=== PATIENT | female | born 1950 | race Caucasian/White ===

== ENCOUNTER → 2020-03-19 11:14 | Outpatient (CLI) | payer MEDICARE, SELFPAY ==
--- NOTE | ~2020-03-19 | XR_ITS ---
XR knee LT 2V 03/19/2020 11:51 INDICATION: Left knee pain PROCEDURE: 2 views left knee COMPARISON: No prior studies for comparison. FINDINGS: Fracture, dislocation or subluxation is not identified. 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 The soft tissues appear within normal limits. No foreign bodies are identified. IMPRESSION: 1: NO ACUTE BONE OR JOINT ABNORMALITY IDENTIFIED. Reviewed, dictated and finalized at location A.
== END ==
PROVIDERS: PCP Nurse Practitioner Family; Visit Provider Nurse Practitioner Family
DX: M25.569 Pain in unspecified knee (principal)
CPT/HCPCS: 73560

== ENCOUNTER → 2020-05-15 10:19 | Outpatient (CLI) | payer MEDICARE, SELFPAY ==
--- NOTE | ~2020-05-15 | MM_ITS ---
EXAMINATION: MM screening [facility] BI w lakisha HISTORY: Screening mammogram TECHNIQUE: Craniocaudal and mediolateral oblique 3-D tomosynthesis images were obtained and synthetic 2-D images were generated. CAD analysis was submitted and interpreted. COMPARISON: 04/12/2017, 03/16/2016, 11/21/2014 BREAST PARENCHYMAL COMPOSITION: There are scattered areas of fibroglandular density. FINDINGS: There is no evidence of suspicious mass, calcification, or architectural distortion to sugg est malignancy in either breast. There has been no suspicious interval change. IMPRESSION: 1. No mammographic evidence of malignancy. 2. Recommend routine screening mammography in one year. BI-RADS Category 1: Negative Reviewed, dictated and finalized at location A. 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
--- NOTE | ~2020-05-15 | DEXA_ITS ---
Bone Density Report Name: Miriam Porras Age: 70 Sex: Female Ethnicity: White Date of : 1950 Indication: osteopenia; height loss;postmenopausal Referring Provider: BEATRIZ BEAUCHAMP Study: Bone densitometry was performed. Exam Date: May 15, 2020 Accession number: [id number] Bone Density: Region BMD T-score Z-score Classification AP Spine (L1, L2, L3) 0.753 -2.4 -0.3 Osteopenia Femoral Neck (Left) 0.581 -2.4 -0.6 Osteopenia Total Hip (Left) 0.598 -2.8 -1.3 Osteoporosis Femoral Neck (Right) 0.638 -1.9 -0.1 Osteopenia Total Hip (Right) 0.629 -2.6 -1.1 Osteoporosis Total Hip Mean 0.614 -2.7 -1.2 Osteoporosis World Health Organization criteria for BMD impression classify patients as: Normal (T-score at or above -1.0), Osteopenia (T-score between -1.0 and -2.5), or Osteoporosis (T-score at or below -2.5). 10-year Fracture Risk: FRAX not reported because: Some T-score for Spine Total or Hip Total or Femoral Neck at or below -2.5 Previous Exams: Region Exam Age BMD T-score BMD Change BMD Change Date g/cm2 vs Baseline vs Previous AP Spine(L1, L2, L3) 05/15/2020 70 0.753 -2.4 -0.050* -0.050* 09/14/2013 63 0.804 -1.9 Total Hip(Left) 05/15/2020 70 0.598 -2.8 -0.078* -0.078* 09/14/2013 63 0.676 -2.2 Total Hip(Right) 05/15/2020 70 0.629 -2.6 -0.072* -0.072* 09/14/2013 63 0.701 -2.0 *Denotes significance at 95% confidence level, LSC for AP Spine = 0.022 g/cm2, LSC for Total Hip = 0.027 g/cm2 Clinical Information Provided by Patient: Has used the following medications: Vitamin D, Calcium Patient maximum height was 64.7 Menopause Age: 44 No regular weight bearing exercise Does not regularly consume dairy products Onset of menses at age 15 Number of children 2 Impression: The patient has osteoporosis, based on the Left Total Hip T-score. The BMD for the AP Spine(L1, L2, L3) decreased, changing by -0.050 since the last DXA exam. The BMD for the Total Hip(Left) decreased, changing by -0.078 since the last DXA exam. The BMD for the Total Hip(Right) decreased, changing by -0.072 since the last DXA exam. Discussion: INCREASED RISK OF FRACTURE. BONE DENSITY IS UNDESIRABLY LOW AT ONE OR MORE SKELETAL SITES, CONSISTENT WITH POSTMENOPAUSAL OSTEOPOROSIS. This patient's lowest T-score meets the World Health Organization's (WHO) criteria for osteoporosis at one or more sites (T-score -2.5 or below).
== END ==
PROVIDERS: PCP Family Medicine; Visit Provider Nurse Practitioner Family
DX: Z12.31 Encounter for screening mammogram for malignant neoplasm of breast (principal); Z78.0 Asymptomatic menopausal state; M81.0 Age-related osteoporosis without current pathological fracture; M85.89 Other specified disorders of bone density and structure, multiple sites
CPT/HCPCS: 77063; 77067; 77080

== ENCOUNTER → 2020-07-23 13:29 | Outpatient (CLI) | payer MEDICARE, SELFPAY ==
--- NOTE | ~2020-07-23 | MR_ITS ---
EXAMINATION: MR brain IAC wo/w con DATE: 07/23/2020 14:51 INDICATION: Asymmetrical hearing loss of left ear. Dizziness. TECHNIQUE: Magnetic resonance imaging (MRI) of the brain, brainstem, and internal auditory canals was performed without and with 13 mL MultiHance intravenous contrast. Sequences included sagittal and ax ial T1-weighted FSE, axial diffusion-weighted FS EPI, axial T2*-weighted GRE, axial T2-weighted FLAIR Propeller, axial T2-weighted Propeller, small abmdj-jg-mrta coronal FIESTA, small abinq-wl-ehvm clinton nal T1-weighted FSE, and small xyrcq-hw-kxym axial T1-weighted SPGR. Postcontrast sequences included axial T1-weighted FSE, small ubxia-cv-jkpk coronal T1-weighted FSE, and small iswpr-cd-mwkj axial T1- weighted SPGR. Apparent diffusion coefficient (ADC) maps were created. COMPARISON: Brain MRI 03/29/2012 FINDINGS: There are scattered areas of nonspecific increased T2-weighted signal intensity in the cere bral white matter, which is within normal limits for the patient's age. There is no intracranial hemo rrhage, acute infarction, or abnormal intracranial mass lesion. The ventricles are normal in size. Th e orbits are normal. The paranasal sinuses are clear. The internal auditory canals and inner and midd le ears are normal. The mastoid air cells are normal. IMPRESSION: 1. Normal aging brain. Reviewed, dictated and finalized at location A. 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 Normal aging brain.
[2020-07-23 14:12] LABS: Estimated Glomerular Filt Rate 55
== END ==
PROVIDERS: PCP Family Medicine
DX: H91.8X2 Other specified hearing loss, left ear (principal); R42 Dizziness and giddiness
CPT/HCPCS: 70553; A9577

== ENCOUNTER → 2021-09-02 14:55 | Outpatient (CLI) | payer MEDICARE, SELFPAY ==
--- NOTE | ~2021-09-02 | MM_ITS ---
EXAMINATION: MM screening [facility] BI w lakisha HISTORY: Screening TECHNIQUE: Craniocaudal and mediolateral oblique 3-D tomosynthesis images were obtained and synthetic 2-D images were generated. CAD analysis was submitted and interpreted. COMPARISON: Comparison to multiple prior studies sequentially, with oldest reviewed study dated 09/2011. BREAST PARENCHYMAL COMPOSITION: There are scattered areas of fibroglandular density. FINDINGS: There is no evidence of suspicious mass, calcification, or architectural distortion to sugg est malignancy in either breast. There has been no suspicious interval change. IMPRESSION: 1. No mammographic evidence of malignancy. 2. Recommend routine screening mammography in one year. BI-RADS Category 1: Negative Reviewed, dictated and finalized at location A. ETING MGR
== END ==
PROVIDERS: PCP Family Medicine; Visit Provider Family Medicine
DX: Z12.31 Encounter for screening mammogram for malignant neoplasm of breast (principal)
CPT/HCPCS: 77063; 77067

== ENCOUNTER → 2022-11-12 13:21 | Outpatient (CLI) | payer MEDICARE, SELFPAY ==
--- NOTE | ~2022-11-12 | MM_ITS ---
EXAMINATION: MM screening [facility] BI w lakisha HISTORY: Screening mammogram TECHNIQUE: Craniocaudal and mediolateral oblique 3-D tomosynthesis images were obtained and synthetic 2-D images were generated. CAD analysis was submitted and interpreted. COMPARISON: 09/02/2021, 05/15/2020, 04/12/2017 BREAST PARENCHYMAL COMPOSITION: There are scattered areas of fibroglandular density. FINDINGS: No suspicious mass, calcification, or architectural distortion are identified in either alexandr ast to suggest malignancy. There has been no suspicious interval change. IMPRESSION: 1. No mammographic evidence of malignancy. 2. Recommend routine screening mammography in one year. BI-RADS Category 1: Negative Reviewed, dictated and finalized at location A.
--- NOTE | ~2022-11-12 | DEXA_ITS ---
Bone Density Report Name: JULIET BURTON Age: 72 Sex: Female Ethnicity: White Date of : 1950 Indication: postmenopausal osteoporosis; height loss; Referring Provider: Maria Antonia Olmstead Study: Bone densitometry was performed. Exam Date: November 12, 2022 Accession number: [id number] Bone Density: Region BMD T-score Z-score Classification AP Spine (L1, L2) 0.710 -2.4 -0.3 Osteopenia Femoral Neck (Left) 0.615 -2.1 -0.2 Osteopenia Total Hip (Left) 0.624 -2.6 -1.0 Osteoporosis Femoral Neck (Right) 0.670 -1.6 0.3 Osteopenia Total Hip (Right) 0.658 -2.3 -0.7 Osteopenia Total Hip Mean 0.641 -2.5 -0.9 Osteopenia World Health Organization criteria for BMD impression classify patients as: Normal (T-score at or above -1.0), Osteopenia (T-score between -1.0 and -2.5), or Osteoporosis (T-score at or below -2.5). 10-year Fracture Risk: FRAX not reported because: Some T-score for Spine Total or Hip Total or Femoral Neck at or below -2.5 Previous Exams: Region Exam Age BMD T-score BMD Change BMD Change Date g/cm2 vs Baseline vs Previous AP Spine(L1, L2) 11/12/2022 72 0.710 -2.4 0.009 0.037* 05/15/2020 70 0.673 -2.8 -0.029* -0.029* 09/14/2013 63 0.702 -2.5 Total Hip(Left) 11/12/2022 72 0.624 -2.6 -0.052* 0.026 05/15/2020 70 0.598 -2.8 -0.078* -0.078* 09/14/2013 63 0.676 -2.2 Total Hip(Right) 11/12/2022 72 0.658 -2.3 -0.043* 0.029* 05/15/2020 70 0.629 -2.6 -0.072* -0.072* 09/14/2013 63 0.701 -2.0 *Denotes significance at 95% confidence level, LSC for AP Spine = 0.022 g/cm2, LSC for Total Hip = 0.027 g/cm2 Clinical Information Provided by Patient: Has used the following medications: Fosamax (i.e. alendronate), Vitamin D, Calcium Patient maximum height was 64.7 Menopause Age: 44 No regular weight bearing exercise Does not regularly consume dairy products Onset of menses at age 15 Number of children 2 Impression: The patient has osteoporosis, based on the Left Total Hip T-score. No significant bone loss was observed. Discussion: INCREASED RISK OF FRACTURE. BONE DENSITY IS UNDESIRABLY LOW AT ONE OR MORE SKELETAL SITES, CONSISTENT WITH POSTMENOPAUSAL OSTEOPOROSIS. This patient's lowest T-score meets the World Health Organization's (WHO) criteria for osteoporosis at one or more sites (T-score -2.5 or below). In untreated darío
== END ==
PROVIDERS: PCP Family Medicine; Visit Provider Nurse Practitioner Family
DX: Z12.31 Encounter for screening mammogram for malignant neoplasm of breast (principal); Z78.0 Asymptomatic menopausal state; M85.88 Other specified disorders of bone density and structure, other site; M85.852 Other specified disorders of bone density and structure, left thigh; M85.851 Other specified disorders of bone density and structure, right thigh; M81.0 Age-related osteoporosis without current pathological fracture
CPT/HCPCS: 77063; 77067; 77080

== ENCOUNTER 2023-10-20 09:03 | Outpatient (CLI) | payer MEDICARE, SELFPAY ==
[2023-10-20 20:20] LABS: Alanine Aminotransferase 22 U/L (6-35); Albumin Level 4.3 g/dL (3.5-5.1); Alkaline Phosphatase 53 U/L (38-126); Anion Gap 4 mmol/L (4-12); Aspartate Amino Transferase 77 U/L (14-36); Bilirubin,Total 0.7 mg/dL (0.2-1.3); Blood Urea Nitrogen 16 mg/dL (7-17); Calcium 9.3 mg/dL (8.4-10.2); Carbon Dioxide 29 mmol/L (22-30); Chloride 105 mmol/L (98-107); Cholesterol 143 mg/dL (0-200); Estimated Glomerular Filt Rate 54; Glucose 96 mg/dL (65-110); HDL Direct 62 mg/dL; Potassium 4.7 mmol/L (3.4-5.0); Sodium 138 mmol/L (137-145); Triglycerides 84 mg/dL (<150)
[2023-10-20 20:31] LABS: LDL Cholesterol Direct 67 mg/dL
[2023-10-20 20:38] LABS: Hematocrit 38.9 % (37.0-47.0); Hemoglobin 12.7 g/dL (12.0-15.0); Mean Corpuscular HGB Conc 32.6 g/dl (32-36); Mean Corpuscular Hemoglobin 31.4 pg (26-34); Mean Platelet Volume 10.9 fl (7.4-10.4); Platelet Count Result 196 k/mm3 (150-375); Red Blood Count 4.05 M/mm3 (4.2-5.4); Red Cell Distribution Width 14.4 % (11.5-14.5); White Blood Count 5.6 K/mm3 (4.5-10.0)
== END 2023-10-20 09:04 | disposition home or self-care (01) ==
PROVIDERS: PCP Family Medicine; Visit Provider Nurse Practitioner Family
DX: I10 Essential (primary) hypertension (principal); M54.32 Sciatica, left side; E66.3 Overweight; Z68.23 Body mass index [BMI] 23.0-23.9, adult
CPT/HCPCS: 36415; 80053; 80061; 84443; 85027

== ENCOUNTER 2023-11-25 09:17 | Outpatient (CLI) | payer MEDICARE, SELFPAY ==
[2023-11-25 20:27] LABS: Alanine Aminotransferase 21 U/L (6-35); Albumin Level 4.2 g/dL (3.5-5.1); Alkaline Phosphatase 52 U/L (38-126); Anion Gap 4 mmol/L (4-12); Aspartate Amino Transferase 88 U/L (14-36); Bilirubin,Total 0.6 mg/dL (0.2-1.3); Blood Urea Nitrogen 12 mg/dL (7-17); Carbon Dioxide 28 mmol/L (22-30); Chloride 106 mmol/L (98-107); Estimated Glomerular Filt Rate > 60; Glucose 83 mg/dL (65-110); Potassium 4.3 mmol/L (3.4-5.0); Sodium 138 mmol/L (137-145)
[2023-11-25 20:48] LABS: Iron 76 ug/dL (37-170)
[2023-11-25 21:00] LABS: Percent Iron Saturation 27 % (20-50)
== END 2023-11-25 09:18 | disposition home or self-care (01) ==
PROVIDERS: PCP Family Medicine; Visit Provider Nurse Practitioner Family
DX: D64.9 Anemia, unspecified (principal); R74.8 Abnormal levels of other serum enzymes
CPT/HCPCS: 36415; 80053; 83540; 83550

== ENCOUNTER 2023-12-07 08:08 | Outpatient (CLI) | payer MEDICARE, SELFPAY ==
--- NOTE | ~2023-12-07 | US_ITS ---
Abdominal Sonogram: Real-time sonographic imaging of the abdomen was performed. Clinical History: Abnormal serum enzyme levels Findings: The liver appears heterogeneous, with no evidence of mass lesion or bile duct dilatation. Main portal vein demonstrates normal direction of flow. The spleen is normal in size without evidence of focal lesion. The gallbladder is well distended, and appears normal with no evidence of gallston e or wall thickening. The common bile duct measures 3 mm. The visualized pancreas, aorta, and IVC ar e unremarkable. The right kidney measures 8.6 cm in length and the left kidney measures 9.8 cm. The re is no hydronephrosis or renal calculus. Impression: Probable diffuse fatty infiltration of the liver versus possibly other chronic liver disease. Reviewed, dictated and finalized at [facility]. Impression: Probable diffuse fatty infiltration of the liver versus possibly other chronic liver disease.
== END 2023-12-07 08:09 ==
LOC: MICIMG 08:09
PROVIDERS: PCP Family Medicine; Visit Provider Nurse Practitioner Family
DX: R74.8 Abnormal levels of other serum enzymes (principal); K76.9 Liver disease, unspecified
CPT/HCPCS: 76700

== ENCOUNTER 2024-11-23 11:59 | Outpatient (CLI) | payer MEDICARE, SELFPAY ==
--- NOTE | ~2024-11-23 | XR_ITS ---
Left Shoulder Technique: AP and axillary views were obtained. Clinical History: Pain Findings: No fracture or dislocation is seen. Osseous alignment is anatomic. The glenohumeral joint d emonstrate moderate degenerative change. AC joint intact. Soft tissues are unremarkable. Impression: Moderate glenohumeral joint degenerative change. Reviewed, dictated and finalized at location . Impression: Moderate glenohumeral joint degenerative change.
--- NOTE | ~2024-11-23 | XR_ITS ---
Left Humerus Technique: AP and lateral views were obtained. Clinical History: Strain Findings: No fracture or dislocation is seen. Osseous alignment is anatomic. There is moderate glenoh umeral joint degenerative change. Remaining joint spaces are intact.. Soft tissues are unremarkable. Impression: No acute abnormality. Moderate glenohumeral joint degenerative change. Reviewed, dictated and finalized at location . Impression: No acute abnormality. Moderate glenohumeral joint degenerative change.
== END 2024-11-23 12:00 | disposition home or self-care (01) ==
LOC: MICIMG 12:00
PROVIDERS: PCP Family Medicine; Visit Provider Nurse Practitioner Adult Health
DX: M19.012 Primary osteoarthritis, left shoulder (principal); S46.212A Strain of muscle, fascia and tendon of other parts of biceps, left arm, initial encounter; X58.XXXA Exposure to other specified factors, initial encounter
CPT/HCPCS: 73030; 73060